=== PATIENT | male | born 1945 | race Caucasian/White ===

== ENCOUNTER 2016-10-19 18:42 | Emergency (ER) | payer MEDICARE ==
[~2016-10-19 18:42] MED LIST: Sodium Chloride 0.9% 100 ML BAG ONE; Sodium Chloride Irrig Solution 250 ML BOT ONE
[2016-10-19] MEDS ORDERED: Triple Antibiotic Oint 1 GM Packet ONE (18:52)
[2016-10-19] MEDS ORDERED: Ketorolac Tromethamine 30 MG/ML VIAL ONE (19:20)
[2016-10-19] MEDS ORDERED: Aspirin 325 MG TAB ONE (19:20)
[2016-10-19] MEDS ORDERED: Acetaminophen/Codeine 30-300mg Tablet ONE (19:20)
[2016-10-19] MEDS ORDERED: Ondansetron HCl/PF 4 MG/2 ML Vial ONE (19:20)
[2016-10-19 19:25] LABS: INR-International Normal Ratio 1.4; PTT 36.3 SEC (22.9-36.1)
[2016-10-19 19:35] LABS: ALT (SGPT) 20 U/L (8-55); AST (SGOT) 32 U/L (5-34); Albumin 3.2 g/dL (3.4-4.8); Alkaline Phosphatase 68 U/L (40-150); Anion Gap 14 mmol/L (10-20); BUN (Urea Nitrogen) 18 mg/dL (8.4-25.7); Bilirubin, Total 1.3 mg/dL (0.2-1.2); CK (CPK) 45 U/L (30-200); Calc. Creatinine Clearance 0 mL/min (70-130); Calcium 9.3 mg/dL (7.8-10.44); Carbon Dioxide 25 mmol/L (23-31); Chloride 103 mmol/L (98-107); Estimated GFR-MDRD 71; Glucose 190 mg/dL (80-115); Magnesium 1.4 mg/dL (1.6-2.6); Protein, Total 7.2 g/dL (5.8-8.1); Sodium 138 mmol/L (136-145)
[2016-10-19 19:36] LABS: CKMB 1.1 ng/mL (0-6.6); Troponin I 0.034 ng/mL (< 0.028)
[2016-10-19 19:42] LABS: #Basophils 0.1 thou/uL (0.0-0.2); #Eosinphils 0.1 thou/uL (0.0-0.7); #Lymphocytes 0.9 thou/uL (1.20-3.40); #Monocytes 0.8 thou/uL (0.11-0.59); #Neutrophils 9.7 thou/uL (1.40-6.50); %Eosinophils 0.6 % (0.0-10.0); %Lymphocytes 7.4 % (21.0-51.0); %Monocytes 6.9 % (0.0-10.0); %Neutrophils 84.1 % (42.0-75.0); Large Platelets SLIGHT; MDiff Complete? YES; Mean Corpuscular HGB CONC 34.3 g/dL (32.0-36.0); Mean Corpuscular Hemoglobin 31.9 pg (27.0-31.0); Mean Platelet Volume 9.2 fL (7.4-10.4); PLT Morphology Comment Appears Decreased; Platelet Count 94 thou/uL (130-400); RBC Distribution Width 13.1 % (11.5-14.5); Red Blood Cell (RBC) Count 4.69 mill/uL (4.70-6.10); White Blood Cell (WBC) Count 11.5 thou/uL (4.8-10.8)
--- NOTE | 2016-10-19 20:11 | RAD ---
LEFT SHOULDER THREE VIEWS: History: Fall. Comparison: None. FINDINGS: There is calcific tendinosis of the rotator cuff. No acute fracture or malalignment. IMPRESSION: No acute fracture or malalignment. POS: [facility]
--- NOTE | 2016-10-19 20:21 | RAD ---
LEFT HIP TWO VIEW: History: Follow up. Comparison: None. FINDINGS: No displaced fracture or malalignment. IMPRESSION: No displaced fracture or malalignment. POS: [facility]
--- NOTE | 2016-10-19 20:31 | RAD ---
PELVIC ONE VIEW: History: Fall. Comparison: None. FINDINGS: Exam is limited. This is underpenetrated. No displaced fracture is appreciated. Pelvic rings appear intact. IMPRESSION: Limited exam due to underpenetration. No displaced fracture is appreciated. If there is concern for a radiographically occult fracture, follow up CT or MR recommended. POS: [facility]
--- NOTE | 2016-10-19 20:33 | RAD ---
LEFT ELBOW FOUR VIEW: History: Fall. Comparison: None. FINDINGS: There are numerous skin folds creating artifacts along the distal humerus. No acute fracture is appr eciated. No large joint effusion, although limited due to non-true lateral view of the elbow. Mild osteoarthritic disease. Presence of a long-standing lateral epicondylitis. IMPRESSION: No acute fracture or malalignment. POS: [facility]
[2016-10-19 21:00] LABS: Bacteria/HPF Rare-Few HPF (None Seen); Bilirubin Negative (Negative); Blood, Urine Negative (Negative); Clarity Clear (Clear); Glucose, Urine (Dipstick) Negative (Negative); Leukocyte Negative (Negative); Nitrite Negative (Negative); Protein, Urine (Dipstick) Negative (Neg-Trace); RBC/HPF 0-3 HPF (0-3); Renal Epithelial 0-3 HPF (0-3); Specific Gravity, Urine 1.015 (1.005-1.030); Transitional Epithelial 0-3 HPF (0-3); Urobilinogen 0.2 mg/dL (0.2-1.0); WBC/HPF 0-3 HPF (0-3)
--- NOTE | 2016-10-19 21:23 | CT ---
CT BRAIN WITHOUT CONTRAST: History: Fall Comparison: None FINDINGS: No acute territorial infarct or hemorrhage. No midline shift of mass effect. Moderate vascular calci fications of the vertebral arteries. The mastoids and paranasal sinuses are clear. The orbits are unremarkable. IMPRESSION: No acute intracranial abnormality. POS: [facility]
--- NOTE | 2016-10-19 21:44 | CT ---
CT CERVICAL SPINE WITHOUT CONTRAST: History: Fall. Comparison: None. FINDINGS: Exam is limited due to photon starvation. Cervical spine evaluation is severely limited. This is due to body habitus. No displaced fracture is appreciated. IMPRESSION: 1. Within the limits of this examination, no displaced fracture of the cervical spine. 2. Cortical irregularity of the posterior left 2nd and 3rd ribs. It is unclear if this is due to fra cture or photon starvation. POS: [facility]
--- NOTE | 2016-10-19 21:59 | CT ---
CT CHEST WITHOUT CONTRAST: History: Fall. Comparison: None. FINDINGS: The lungs are hypoinflated. Small air effusion with compressive atelectasis. Heart size is enlarged. Abnormal increased mediastinal fat. Numerous likely reactive lymph nodes in the mediastinum. Prevas cular right peritracheal and AP window. Spleen is enlarged measuring almost 19 cm. Aortic contour is without aneurysmal dilatation. There is some irregularity of the right clavicle may be the acromioclavicular joint although incompl etely evaluated on this examination. This was seen on the 2016 examination and may be chronic remode ling. Posterior left cortical irregularity persists on the axial image although it is likely due to photon starvation, not an actual fracture. There appears to be a buckle fracture of the right anterior 5th and 6th ribs. No displaced rib fract ure. IMPRESSION: 1. Likely anterior buckle fracture right 5th and 6th ribs. 2. Small to moderate right effusion with compressive atelectasis right lung base. 3. Marked splenomegaly. There also appears to be numerous varices suggesting portal hypertension. POS: [facility]
[2016-10-19] MEDS ORDERED: cefTRIAXone\\ROCEPHIN 2 GM VIAL ONE (22:18)
== END 2016-10-19 22:44 | disposition short-term general hospital (02) ==
LOC: MADERS 18:42
DX: S22.41XA Multiple fractures of ribs, right side, initial encounter for closed fracture (principal); S51.012A Laceration without foreign body of left elbow, initial encounter; L03.114 Cellulitis of left upper limb; I25.10 Atherosclerotic heart disease of native coronary artery without angina pectoris; I50.9 Heart failure, unspecified; E11.9 Type 2 diabetes mellitus without complications; I89.0 Lymphedema, not elsewhere classified; I11.0 Hypertensive heart disease with heart failure; G89.29 Other chronic pain; M54.5 Low back pain; Z79.82 Long term (current) use of aspirin; Z79.899 Other long term (current) drug therapy; W18.30XA Fall on same level, unspecified, initial encounter
CPT/HCPCS: 36415; 70450; 71250; 72125; 72170; 80053; 81001; 82553; 83036; 83735; 83880; 84484; 85025; 85610; 85730; 87040; 87086; 93005; 96365; 96375; J0696; J1885; J2405; J7050